=== PATIENT | male | born 1970 | race African-American/Black ===

== ENCOUNTER 2019-02-12 19:18 | Emergency (ER) | payer OTHER, SELFPAY ==
[2019-02-12] MEDS ORDERED: dexAMETHasone 4 MG TAB ONE (19:56)
[2019-02-12] MEDS ORDERED: CYCLOBENZAPRINE 10 MG TAB ONE (19:56)
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
[2019-02-12 22:01] VITALS: TEMP 97.5
[2019-02-12 22:05] VITALS: BP 138/99; O2SAT 99
== END 2019-02-12 21:26 | disposition home or self-care (01) ==
LOC: ER 19:18
DX: S50.12XA Contusion of left forearm, initial encounter (principal); M77.12 Lateral epicondylitis, left elbow; V43.52XA Car driver injured in collision with other type car in traffic accident, initial encounter; Y93.89 Activity, other specified; Y92.89 Other specified places as the place of occurrence of the external cause; Y99.9 Unspecified external cause status
CPT/HCPCS: 99284; J8540

== ENCOUNTER 2020-07-25 07:33 | Day surgery (SDC) | payer OTHER ==
[2020-07-25] MEDS ORDERED: Ringers Lactate 1,000 ML IV ONE (08:03)
[2020-07-25] MEDS ORDERED: CEFAZOLIN/SWI 1gm 1 GM/10 ML SYR ONE (08:03)
[2020-07-25] MEDS ORDERED: FENTANYL CITR 100 MCG/2 ML ONE (08:27)
[2020-07-25] MEDS ORDERED: MIDAZOLAM HCL 2 MG/2 ML INJ ONE (08:28)
[2020-07-25] MEDS ORDERED: ONDANSETRON 4 MG/2 ML VIAL ONE (08:28)
[2020-07-25] MEDS ORDERED: KETOROLAC 30 MG/ML INJ ONE (08:28)
[2020-07-25] MEDS ORDERED: dexAMETHasone 10 MG/ML VIAL ONE (08:28)
[2020-07-25] MEDS ORDERED: LIDOCAINE 2% MPF 5 ML VIAL ONE (08:28)
[2020-07-25] MEDS ORDERED: propofoL 200 MG/20 ML VIAL IV ONE (08:28)
[2020-07-25] MEDS ORDERED: BUPIVACAINE 0.25% PF 30 ML VIAL ONE (08:30)
--- NOTE | 2020-07-25 09:24 | P.OP ---
Preoperative diagnosis: Recurrent Umbilical Hernia Postoperative diagnosis: Recurrent Umbilical Hernia Primary procedure: Open Umbilical Hernia Repair with Mesh Anesthesia: GETA + Local Estimated blood loss: <5cc Specimen: hernia contents - adiopose Findings: small ~0.5cm hernia defect Complications: None Implants: 4.3 cm Bard Ventralex mesh with strap Transferred to: Recovery Room Condition: Good
[2020-07-25] MEDS: HYDROMORPHONE HCL 1 MG/ML INJ ONE ×2 (09:54→09:59)
[2020-07-25] MEDS ORDERED: MEPERIDINE HCL 25 MG/ML SYR ONE (10:06)
[2020-07-25 10:19] VITALS: BP 122/66; TEMP 97.2; O2SAT 100
--- NOTE | 2020-07-25 10:59 | OP ---
Date of Procedure: 07/25/2020 Surgeon: Jaskaran Mills MD, Preoperative Diagnosis: Recurrent umbilical hernia. Postoperative Diagnosis: Recurrent umbilical hernia. Procedure Performed: Open umbilical hernia repair with mesh. Anesthesia: General endotracheal plus local with 0.25% Marcaine without epinephrine. Estimated Blood Loss: Less than 5 mL. Specimens: Hernia contents-adipose tissue. Findings: Small less than 0.5 cm hernia defect. Complications: None. Implants: 4.3 cm Bard Ventralex mesh with straps. Disposition: The patient was transferred to recovery room in good condition. Procedure In Detail: After informed consent was obtained, the patient was brought to the operating r oom, prepped and draped in the usual sterile fashion. After adequate anesthesia achieved, an incisio n through a previous infraumbilical incision in a curvilinear fashion down through subcutaneous tissu e was dissected down to find the hernia sac, which was found to be quite small with only adipose tiss ue contained open hernia sac and removed the hernia sac contents, which were some entrapped fat at th is point. I then reduced the remainder of the preperitoneal fat to the preperitoneal space. I perfo rmed a digital finger sweep after enlarging the incision to approximately 1 cm in the fascia. A fing er sweep was performed to ensure a good landing zone for the hernia mesh system. At this point, I in spected the area for hemostasis and was achieved at this point. I then brought in a 0 looped PDS and brought the 4.2 cm round Bard Ventralex system with straps onto the field after hydrating it appropr iately, parachuted in the mesh using interrupted circumferential 0 PDS sutures and parachuted in the mesh at this point in the preperitoneal space. I then tied all these down while pulling on the strap to ensure good apposition to the anterior abdominal wall. I then closed the defect over the top usi ng a running 0 PDS suture with good apposition of the tissues. The area was copiously irrigated and then suctioned out until completely dry. I then closed the deep dermal plane using interrupted 3-0 V icryl sutures and the skin was closed with 4-0 Monocryl in a running fashion. Dermabond was placed o linda top. The patient tolerated the procedure well without evidence of complication and transferred t o PACU in good condition. All counts were correct at the end of the case. TK/MODL Voice ID: [id number] Report ID: [id number]
== END 2020-07-25 11:45 | disposition home or self-care (01) ==
LOC: OR 07:33
PROVIDERS: ATTEND Surgery
PROC: 0WUF0JZ Supplement Abdominal Wall with Synthetic Substitute, Open Approach (ICD-10-PCS; principal; 2020-07-25 08:30)
DX: K42.9 Umbilical hernia without obstruction or gangrene (principal); Z20.822 Contact with and (suspected) exposure to COVID-19
CPT/HCPCS: 88302; 49585; U0003; J2704; J2250; J3010; J1100; J2175; J1170; J0690; J7120; J2405

== ENCOUNTER 2024-12-03 09:52 | Emergency (ER) | payer OTHER ==
--- OUTSIDE RECORDS SUMMARY | 2024-12-03 09:55 | XMS REPORT | Clinical Summary ---
Author Name Unknown Organization [facility] Address [address] [place] [address] Care Team Providers Care Overnight Babysitter Name Role Phone Jeanie Humphreyjuli Unavailable Nathaniel Ronquillo MD Unavailable [phone] Troy Mccoy RN Unavailable Encounters Date Type Department Care Team Description 11/27/2024 Telephone [facility] [address] [facility], 7th Floor [address] [place], [place] [id number] Troy Mccoy, RN Nurse Navigation (Angela Ortiz) after 12/04/2023 Social History Tobacco Use Types Packs/Day Years Used Date Smoking Tobacco: Never Assessed Sex and Gender Information Value Date Recorded Sex Assigned at Not on file Legal Sex Male 4:11 PM CDT Gender Identity Not on file Sexual Orientation Not on file Plan of Treatment Health Maintenance Due Date Last Done Comments Pneumococcal Vaccine: 50+ Years (1 of 1 - PCV) 021 COVID-19 Vaccine ( - 2023-25 season) 2023 Influenza Vaccine (#1) 2024 Insurance [employer] [place]IC[place] TRAD[place] S[place] [employer] [place] PL[place] TRADITIONAL ST[place] SSI Advance Directives * Full Code (Latest Code Status on File) Date Activated Date Inactivated Comments 11/27/2024 3:22 PM Update based o n Advanced Directive Documentation Care Teams Overnight Babysitter Relationship Specialty Start Date End Date Patricia Humphrey [address] [place] [phone] PCP - External Primary Care Provider Family Practice 8/14/25 Nathaniel Ronquillo MD [address] [place] [address] PCP - External Follow Up A Urology 11/26/24 Troy Mccoy, RN [facility] [place], [place] [id number] [email or web address] Intake Nurse Navigator Nursing 11/27/24
[2024-12-03 10:17] LABS: Absolute Lymphocytes (CBC) 1.6 K/uL (0.7-4.9); Hematocrit 44.5 % (39.6-49.0); Hemoglobin 15.1 g/dL (13.6-17.9); MCH 31.3 pg (27.0-35.0); MCHC 34.0 g/dL (32.0-36.0); MCV 92.0 fL (80-100); MPV 8.8 fL (7.6-11.3); Nucleated RBC Absolute Count 0.0 (0-0); Nucleated Red Blood Cells % 0.0 % (0-0); RBC Red Blood Cell Count 4.84 M/uL (4.33-5.43); White Blood Count 7.10 thou/uL (4.3-10.9)
[2024-12-03] MEDS ORDERED: KETOROLAC 30 MG/ML INJ ONE (10:20)
[2024-12-03] MEDS ORDERED: ONDANSETRON 4 MG/2 ML VIAL ONE (10:20)
[2024-12-03] MEDS ORDERED: DIAZEPAM 2 MG TABLET ONE (10:21)
[2024-12-03] MEDS ORDERED: NA CHLORIDE 0.9% 1,000 ML ONE (10:21)
[2024-12-03] MEDS ORDERED: MORPHINE 4 MG/ML SYR ONE ×2 (10:21→11:59)
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
[2024-12-03 11:08] LABS: ALT/SGPT 25.0 U/L (16-61); Albumin 3.8 g/dL (3.4-5.0); Albumin/Globulin Ratio 1.1 (1.1-1.8); Alkaline Phosphatase 52.0 U/L (45-117); Anion Gap 8.2 mEq/L (5.0-15.0); BUN Blood Urea Nitrogen 12.0 mg/dL (7-18); Globulin 3.5 g/dL (2.3-3.5); Glucose Level 104.0 mg/dL (74-106)
[2024-12-03 11:09] LABS: AST/SGOT 16.0 U/L (15-37); Potassium 3.2 mEq/L (3.5-5.1)
--- NOTE | 2024-12-03 11:40 | RAD REPORT ---
EXAMINATION: MRI LUMBAR SPINE WITHOUT CONTRAST CLINICAL INDICATION: Radiculopathy TECHNIQUE: Multiplanar multisequence MR images were obtained of the lumbar spine without intravenous contrast. Unless otherwise specified, incidental findings do not require dedicated imaging follow-up. [id number]. COMPARISON: CT lumbar spine December 03, 2024 FINDINGS: For purposes of this dictation, it is assumed that there are 5 non rib-bearing lumbar type vertebrae, and the most caudal fully segmented lumbar vertebra is labeled L5. L1-2 and L2-3 unremarkable there graph Left lateral disc herniation L3-4 narrows the left neural foramina. Disc bulge, ligamentum flavum and facet hypertrophy L4-5. Mild narrowing of the neural foramina bilat erally L5-S1 disc is thinned with tiny central disc protrusion. Facet hypertrophy. Mild narrowing of the pato ral foramina No significant abnormal signal within the bones IMPRESSION: Left lateral disc herniation L3-4 narrows the left neural foramina
--- NOTE | 2024-12-03 11:58 | EDPHYS ---
Physician Documentation [facility] Name: Michel Youssef Jr Age: 54 yrs Sex: Male : 1970 Arrival Date: 12/03/2024 Time: 09:52 Bed DX2 Private MD: Terrence Sauceda HPI: 12/03 10:18 This 54 yrs old Black Male presents to ER via Ambulatory with complaints of Low Back michael Pain, Hip Pain - left, Leg Pain - Left numbness, Groin Pain. 10:18 The patient presents with pain that is acute, with no known mechanism of injury, that michael is chronic, with no known mechanism of injury. The symptoms are located in the low back, lumbar area and left low back. The pain does not radiate. The problem was sustained from unknown cause. Onset: The symptoms/episode began/occurred 2 day(s) ago. Modifying factors: The patient symptoms are alleviated by nothing, the patient symptoms are aggravated by any movement. Severity of symptoms: At their worst the symptoms were moderate, in the emergency department the symptoms are unchanged. The patient has experienced similar episodes in the past, multiple times. Historical: - Allergies: 10:08 Ibuprofen; ss 10:08 PCN; ss - Home Meds: 10:08 None [Active]; ss - PMHx: 10:08 Sciatica; prostate CA "low grade"; ss - PSHx: 10:08 umbilical hernia repair; ss - Immunization history:: Adult Immunizations up to date. - Infectious Disease History:: Denies. - Social history:: Smoking status: Patient denies any tobacco usage or history of. - Family history:: not pertinent. ROS: 10:18 Constitutional: Negative for fever, chills, and weight loss, Eyes: Negative for injury, michael pain, redness, and discharge, ENT: Negative for injury, pain, and discharge, Neck: Negative for injury, pain, and swelling, Cardiovascular: Negative for chest pain, palpitations, and edema, Respiratory: Negative for shortness of breath, cough, wheezing, and pleuritic chest pain, Abdomen/GI: Negative for abdominal pain, nausea, vomiting, diarrhea, and constipation, : Negative for injury, bleeding, discharge, and swelling, MS/Extremity: Negative for injury and deformity, Skin: Negative for injury, rash, and discoloration, Neuro: Negative for headache, weakness, numbness, tingling, and seizure, Psych: Negative for depression, anxiety, suicide ideation, homicidal ideation, and hallucinations, Allergy/Immunology: Negative for hives, rash, and allergies, Endocrine: Negative for neck swelling, polydipsia, polyuria, polyphagia, and marked weight changes, Hematologic/Lymphatic: Negative for swollen nodes, abnormal bleeding, and unusual bruising, 10:18 Back: Positive for decreased range of motion, pain at rest, pain with movement, radiated pain, of the lumbar area and left low back, Exam: 10:18 Constitutional: This is a well developed, well nourished patient who is awake, alert, michael and in no acute distress. Head/Face: Normocephalic, atraumatic. Eyes: Pupils equal round and reactive to light, extra-ocular motions intact. Lids and lashes normal. Conjunctiva and sclera are non-icteric and not injected. Cornea within normal limits. Periorbital areas with no swelling, redness, or edema. ENT: Nares patent. No nasal discharge, no septal abnormalities noted. Tympanic membranes are normal and external auditory canals are clear. Oropharynx with no redness, swelling, or masses, exudates, or evidence of obstruction, uvula midline. Mucous membranes moist. Neck: Trachea midline, no thyromegaly or masses palpated, and no cervical lymphadenopathy. Supple, full range of motion without nuchal rigidity, or vertebral point tenderness. No Meningismus. Chest/axilla: Normal chest wall appearance and motion. Nontender with no deformity. No lesions are appreciated. Cardiovascular: Regular rate and rhythm with a normal S1 and S2. No gallops, murmurs, or rubs. Normal PMI, no JVD. No pulse deficits. Respiratory: Lungs have equal breath sounds bilaterally, clear to auscultation and percussion. No rales, rhonchi or wheezes noted. No increased work of breathing, no retractions or nasal flaring. Abdomen/GI: Soft, non-tender, with normal bowel sounds. No distension or tympany. No guarding or rebound. No evidence of tenderness throughout. Male : Normal genitalia with no discharge or lesions. Skin: Warm, dry with normal turgor. Normal color with no rashes, no lesions, and no evidence of cellulitis. MS/ Extremity: Pulses equal, no cyanosis. Neurovascular intact. Full, normal range of motion., bilateral aka Neuro: Awake and alert, GCS 15, oriented to person, place, time, and situation. Cranial nerves II-XII grossly intact. Motor strength 5/5 in all extremities. Sensory grossly intact. Cerebellar exam normal. Normal gait. Psych: Awake, alert, with orientation to person, place and time. Behavior, mood, and affect are within normal limits. 10:18 Back: pain, that is moderate, that is severe, of the lumbar area and left low back, ROM is normal, normal spinal alignment noted, no deformity, CVA tenderness, is absent, vertebral tenderness, is not appreciated, muscle spasm, is appreciated in the left low back, left mid back, right mid back and right low back, 10:18 : Exam negative for 10:18 : Exam negative for acute changes, dysuria, discharge, blood at meatus, cervical michael motion tenderness, CVA tenderness, bladder tenderness, bladder distension, rectal tenderness, CVA tenderness, is absent, Male external genitalia: normal, Bladder: is normal, non-distended, non-tender, Vital Signs: 10:07 BP 127 / 76; Pulse 69; Resp 16; Temp 97.5(TE); Pulse Ox 99% on R/A; Weight 79.38 kg; ss Height 5 ft. 9 in. ; Pain 10/10; 11:00 BP 161 / 110; Pulse 63; Resp 19; Pulse Ox 99% ; me1 12:10 BP 135 / 79; Pulse 68; Resp 17; Pulse Ox 99% ; rg5 13:24 BP 135 / 85; Pulse 67; Resp 16; Pulse Ox 100% ; bp 10:07 Body Mass Index 25.84 (79.38 kg, 175.26 cm) ss 10:07 Pain Scale: Adult ss MDM: 10:00 Medical Screening Exam initiated michael 10:21 Differential diagnosis: arthritis, strain, fracture, sciatica, contusion, Herniated michael disc UTI. Data reviewed: vital signs, nurses notes, lab test result(s), radiologic studies, CT scan, MRI. Consideration of Admission/Observation Escalation of care including admission/observation considered. I considered the following discharge prescriptions or medication management in the emergency department Medications were administered in the Emergency Department. See MAR. Independent interpretation of the following test(s) in the Emergency Department CT Scan: My interpretation is CT LUMBAR. Historians other than the Patient: PT WELL INFORMED. Care significantly affected by the following chronic conditions: LOW BACK PAIN , SCIATICA. 12/03 10:02 Order name: CBC with Diff; Complete Time: 11:23 [facility] 12/03 10:02 Order name: CMP; Complete Time: 11:23 [facility] 12/03 10:02 Order name: CT Lumbar Spine Wo Con; Complete Time: 11:23 [facility] 12/03 10:18 Order name: MRI Lumbar Spine wo Con; Complete Time: 11:53 [facility] 12/03 11:54 Order name: PO challenge: JUICE; Complete Time: 12:08 [facility] 12/03 13:16 Order name: IV Saline Lock - Large Bore; Complete Time: 13:20 [facility] Administered Medications: 10:51 Drug: morphine IVP or IV 4 mg IVP once over 4 mins Route: IVP; Infused Over: 4 mins; me1 Site: left antecubital; 12:10 Follow up: Response: No adverse reaction; Pain is decreased rg5 10:51 Drug: Ondansetron IVP 8 mg IVP once; over 2 minutes Route: IVP; Site: left antecubital; me1 12:10 Follow up: Response: No adverse reaction rg5 11:27 Drug: NS 0.9% IV 1000 ml IV at 1000 ml once; to be given as a bolus over 60 minutes me1 Route: IV; Rate: 1000 ml; Site: left antecubital; 12:09 Follow up: IV Status: Completed infusion; IV Intake: 1000ml rg5 11:27 Drug: Ketorolac IVP 30 mg IVP once Route: IVP; Site: left antecubital; me1 12:09 Follow up: Response: No adverse reaction rg5 11:27 Drug: Diazepam PO 10 mg PO once Route: PO; me1 12:09 Follow up: Response: No adverse reaction rg5 11:27 Drug: Decadron - Dexamethasone IVP 10 mg IVP once Route: IVP; Site: left antecubital; me1 12:10 Follow up: Response: No adverse reaction rg5 12:00 Drug: Potassium PO Effervescent Tablet 25 mEq PO once; dissolve in 4 ounces of water or rg5 juice Route: PO; 12:54 Follow up: Response: No adverse reaction rg5 12:00 Drug: morphine IVP or IV 4 mg IVP once over 4 mins Route: IVP; Infused Over: 4 mins; rg5 Site: left antecubital; 12:54 Follow up: Response: No adverse reaction rg5 12:09 Drug: Decadron - Dexamethasone IVP 10 mg IVP once Route: IVP; Site: left antecubital; rg5 12:54 Follow up: Response: No adverse reaction rg5 13:31 Drug: diphenhydrAMINE IVP 50 mg IVP once Route: IVP; Site: left antecubital; bp 13:31 Drug: Famotidine IVP 40 mg IVP once; dilute with 10 mL 0.9% NaCl; give over 2 minutes bp Route: IVP; Site: left antecubital; Disposition Summary: 12/03/24 11:56 Discharge Ordered Notes: Location: Home michael Problem: new michael Symptoms: have improved michael Condition: Stable michael Diagnosis - Sciatica michael - Sciatica, left side michael - Radiculopathy, lumbar region michael - Hypokalemia michael - Intervertebral disc disorders with radiculopathy, lumbar region - LEFT LATERAL DISC michael HERNIATION L3-4NARROWS THE LEFT NEURAL FORAMEN Followup: michael - With: Private Physician - When: 2 - 3 days - Reason: Recheck today's complaints, Re-evaluation by your physician Followup: michael - With: Gilmar Smith MD - When: 2 - 3 days - Reason: Recheck today's complaints, Re-evaluation by your physician Discharge Instructions: - Discharge Summary Sheet michael - Potassium Content of Foods michael - Drug Allergy, [id number] michael - Herniated Disk michael - Lumbosacral Radiculopathy michael - Sciatica michael - Hypokalemia michael - Herniated Disk, Sahi-da-Tisl michael - Radicular Pain michael Forms: - Medication Reconciliation Form michael - Antibiotic Education michael - Prescription Opioid Use michael - Patient Portal Instructions michael - Leadership Thank You Letter [facility] Prescriptions: - Pepcid 40 mg Oral tablet - take 1 tablet ORAL route 2 times per day; 20 tablet; Refills: 0, Product michael Selection Permitted - Hydroxyzine HCl 50 mg Oral tablet - take 1 tablet ORAL route every 6 hours As needed; 28 tablet; Refills: 0, michael Product Selection Permitted - Valium 5 mg Oral Tablet - take 1 tablet ORAL route every 8 hours As needed; 20 tablet; Refills: 0, [facility] Product Selection Permitted - Tylenol-Codeine #3 300mg-30mg Oral tablet - take 2 tablets ORAL route every 6 hours As needed; 20 tablet; Refills: 0, [facility] Product Selection Permitted - Dexamethasone 4mg Oral tablet - take 1 tablet ORAL route daily for 4 days; 4 tablet; Refills: 0, Product [facility] Selection Permitted Signatures: Dispatcher [employer] Terrence Gonzalez MD MD cha Blanchard, Shelby, RN RN ss Vic Andrade RN RN bp Rosana Aguilar RN RN me1 Darrick Zhong RN RN rg5 Corrections: (The following items were deleted from the chart) 10:18 10:18 Lumbar Spine Wo Con+[id number].RAD.[id number] ordered. BRADSD SUSAN
--- NOTE | 2024-12-03 11:58 | ER ---
Nurse's Notes [facility] Name: Michel Youssef Jr Age: 54 yrs Sex: Male : 1970 Arrival Date: 12/03/2024 Time: 09:52 Bed DX2 Private MD: Diagnosis: Sciatica;Sciatica, left side;Radiculopathy, lumbar region;Hypokalemia;Intervertebral disc disorders with radiculopathy, lumbar region-LEFT LATERAL DISC HERNIATION L3-4NARROWS THE LEFT NEURAL FORAMEN Presentation: 12/03 10:07 Chief complaint: Patient states: Pain to L buttock that radiates down L x 4 days. HX of ss sciatica, but pt reports this feels worse. Coronavirus screen: Client denies travel out of the [place] in the last 14 days. Ebola Screen: Patient denies exposure to infectious person. Patient denies travel to an Ebola-affected area in the 21 days before illness onset. Initial Sepsis Screen: Does the patient meet any 2 criteria? No. Patient's initial sepsis screen is negative. Does the patient have a suspected source of infection? No. Patient's initial sepsis screen is negative. Risk Assessment: Do you want to hurt yourself or someone else? Patient reports no desire to harm self or others. Onset of symptoms was December 03, 2024. 10:07 Method Of Arrival: Ambulatory ss 10:07 Acuity: SUKI 3 ss Historical: - Allergies: 10:08 Ibuprofen; ss 10:08 PCN; ss - Home Meds: 10:08 None [Active]; ss - PMHx: 10:08 Sciatica; prostate CA "low grade"; ss - PSHx: 10:08 umbilical hernia repair; ss - Immunization history:: Adult Immunizations up to date. - Infectious Disease History:: Denies. - Social history:: Smoking status: Patient denies any tobacco usage or history of. - Family history:: not pertinent. Screenin:05 [facility] ED Fall Risk Assessment (Adult) History of falling in the last 3 months, me1 including since admission No falls in past 3 months (0 pts) Confusion or Disorientation No (0 pts) Intoxicated or Sedated No (0 pts) Impaired Gait No (0 pts) Mobility Assist Device Used No (0 pt) Altered Elimination No (0 pt) Score/Fall Risk Level 0 - 2 = Low Risk Maintained a safe environment, Provided non-skid footwear, Hourly rounding (assess needs \\T\\ fall precautionary measures) done. Abuse screen: Denies threats or abuse. Nutritional screening: No deficits noted. Tuberculosis screening: No symptoms or risk factors identified. Assessment: 10:05 General: Appears uncomfortable, well groomed, well developed, well nourished, Behavior me1 is calm, cooperative, appropriate for age, Reports Pain to L buttock that radiates down L x 4 days. HX of sciatica, but pt reports this feels worse. Pain: Complains of pain in left mid back and left low back and lumbar area Pain radiates to left leg Pain currently is 10 out of 10 on a pain scale. Quality of pain is described as burning, sharp, shooting, Pain began 4 days ago Is continuous. Neuro: Level of Consciousness is awake, alert, obeys commands, Oriented to person, place, time, situation, Appropriate for age. Cardiovascular: Patient's skin is warm and dry. Respiratory: Airway is patent Respiratory effort is even, unlabored, Respiratory pattern is regular, symmetrical. GI: No signs and/or symptoms were reported involving the gastrointestinal system. : No signs and/or symptoms were reported regarding the genitourinary system. EENT: No signs and/or symptoms were reported regarding the EENT system. Derm: Skin is intact, is healthy with good turgor, Skin is normal. Musculoskeletal: Reports pain in left leg and left mid back and left low back and lumbar area. 13:16 General: Patient verbalized concern that he is having a reaction to toradol. Has nasal me1 congestion, eyes are swollen, reports difficulty swallowing.. 13:23 Reassessment: PT RETURNED AFTER DC, ABRUPT DYSPNEA, TROUBLE SWALLOWING AND FACIAL RASH. bp Vital Signs: 10:07 BP 127 / 76; Pulse 69; Resp 16; Temp 97.5(TE); Pulse Ox 99% on R/A; Weight 79.38 kg; ss Height 5 ft. 9 in. ; Pain 10/10; 11:00 BP 161 / 110; Pulse 63; Resp 19; Pulse Ox 99% ; me1 12:10 BP 135 / 79; Pulse 68; Resp 17; Pulse Ox 99% ; rg5 13:24 BP 135 / 85; Pulse 67; Resp 16; Pulse Ox 100% ; bp 10:07 Body Mass Index 25.84 (79.38 kg, 175.26 cm) ss 10:07 Pain Scale: Adult ss ED Course: 09:56 Patient arrived in ED. im 10:00 Terrence Vora MD is Attending Physician. michael 10:00 Rosana Aguilar, BRITNEY is Primary Nurse. me1 10:05 Patient has correct armband on for positive identification. Bed in low position. Call me1 light in reach. Side rails up X2. Provided Education on: POC. Verbalized understanding.. Client placed on continuous cardiac and pulse oximetry monitoring. NIBP monitoring applied. Pulse ox on. NIBP on. 10:05 No provider procedures requiring assistance completed. me1 10:08 Triage completed. ss 10:08 Arm band placed on left wrist. ss 10:18 CMP Sent. me1 10:18 CBC with Diff Sent. me1 10:18 Initial lab(s) drawn, by ct, sent to lab. Inserted saline lock: 22 gauge in left me1 antecubital area, using aseptic technique. 10:37 CT Lumbar Spine Wo Con In Process Unspecified. EDMS 11:14 MRI Lumbar Spine wo Con In Process Unspecified. EDMS 11:56 Gilmar Smith MD is Referral Physician. michael 12:23 IV discontinued, bleeding controlled, No redness/swelling at site. Pressure dressing rg5 applied. 13:26 Inserted saline lock: 22 gauge in left antecubital area, using aseptic technique. bp 13:27 Vic Andrade, BRITNEY is Primary Nurse. bp 14:12 IV discontinued, intact, bleeding controlled, No redness/swelling at site. Pressure ss dressing applied. Administered Medications: 10:51 Drug: morphine IVP or IV 4 mg IVP once over 4 mins Route: IVP; Infused Over: 4 mins; me1 Site: left antecubital; 12:10 Follow up: Response: No adverse reaction; Pain is decreased rg5 10:51 Drug: Ondansetron IVP 8 mg IVP once; over 2 minutes Route: IVP; Site: left antecubital; me1 12:10 Follow up: Response: No adverse reaction rg5 11:27 Drug: NS 0.9% IV 1000 ml IV at 1000 ml once; to be given as a bolus over 60 minutes me1 Route: IV; Rate: 1000 ml; Site: left antecubital; 12:09 Follow up: IV Status: Completed infusion; IV Intake: 1000ml rg5 11:27 Drug: Ketorolac IVP 30 mg IVP once Route: IVP; Site: left antecubital; me1 12:09 Follow up: Response: No adverse reaction rg5 11:27 Drug: Diazepam PO 10 mg PO once Route: PO; me1 12:09 Follow up: Response: No adverse reaction rg5 11:27 Drug: Decadron - Dexamethasone IVP 10 mg IVP once Route: IVP; Site: left antecubital; me1 12:10 Follow up: Response: No adverse reaction rg5 12:00 Drug: Potassium PO Effervescent Tablet 25 mEq PO once; dissolve in 4 ounces of water or rg5 juice Route: PO; 12:54 Follow up: Response: No adverse reaction rg5 12:00 Drug: morphine IVP or IV 4 mg IVP once over 4 mins Route: IVP; Infused Over: 4 mins; rg5 Site: left antecubital; 12:54 Follow up: Response: No adverse reaction rg5 12:09 Drug: Decadron - Dexamethasone IVP 10 mg IVP once Route: IVP; Site: left antecubital; rg5 12:54 Follow up: Response: No adverse reaction rg5 13:31 Drug: diphenhydrAMINE IVP 50 mg IVP once Route: IVP; Site: left antecubital; bp 13:31 Drug: Famotidine IVP 40 mg IVP once; dilute with 10 mL 0.9% NaCl; give over 2 minutes bp Route: IVP; Site: left antecubital; Medication: 10:05 VIS not applicable for this client. me1 Intake: 12:09 IV: 1000ml; Total: 1000ml. rg5 Outcome: 11:56 Discharge ordered by . micheal 12:23 Discharged to home via wheelchair, rg5 12:23 Condition: stable 12:23 Discharge instructions given to patient, Prescriptions given X 4, 12:55 Patient left the ED. rg5 14:12 Discharged to home ambulatory, with family, 14:12 Condition: good 14:12 Instructed on discharge instructions, follow up and referral plans. medication usage, Demonstrated understanding of instructions, follow-up care, medications, 14:43 Patient left the ED. ss Signatures: Dispatcher [employer] EDTerrence Everett MD MD cha Blanchard, Shelby, RN RN ss Vic Andrade, RN RN Megan Clemons Michelle, RN RN me1 Darrick Zhong RN RN rg5 Corrections: (The following items were deleted from the chart) 10:55 10:07 Chief complaint: Patient states: Pain to L buttock that radiates down L x 4 days. me1 HX of sciatica, but pt reports this feels worse ss
[2024-12-03] MEDS ORDERED: POTASSIUM 25 MEQ EFFERV TAB ONE (11:59)
[2024-12-03] MEDS ORDERED: NA CHLORIDE 0.9% 250 ML ONE (12:26)
[2024-12-03 13:00] VITALS: TEMP 97.5
[2024-12-03] MEDS ORDERED: FAMOTIDINE 20 MG/2 ML VIAL IV ONE (13:20)
[2024-12-03] MEDS ORDERED: DIPHENHYDRAMINE 50 MG/ML VIAL ONE (13:20)
[2024-12-03 16:16] VITALS: BP 135/85; O2SAT 100
== END 2024-12-03 14:43 | disposition home or self-care (01) ==
LOC: ER 09:52
DX: M54.32 Sciatica, left side (principal); M54.16 Radiculopathy, lumbar region; E87.6 Hypokalemia; M51.16 Intervertebral disc disorders with radiculopathy, lumbar region; Z88.0 Allergy status to penicillin; Z88.8 Allergy status to other drugs, medicaments and biological substances
CPT/HCPCS: 96361; 85025; 36415; 80053; 72131; 72148; 96375; 96374; 99284; J1200; J1100 ×2; J2405; J7050; J7030

== ENCOUNTER 2024-12-09 13:08 | Emergency (ER) | payer OTHER ==
--- OUTSIDE RECORDS SUMMARY | 2024-12-09 13:11 | XMS REPORT | Clinical Summary ---
Author Name Unknown Organization [facility] Address [address] [place] [address] Care Team Providers Care Fisheries Diver Name Role Phone Jeanie Humphreyjuli Unavailable Nathaniel Ronquillo MD Unavailable [phone] Troy Mccoy RN Unavailable Encounters Date Type Department Care Team Description 11/27/2024 Telephone [facility] [address] [facility] [address] [facility] 7th Floor Elevator [address] [place], [place] [id number] Troy Mccoy, RN Nurse Navigation (Angela Ortiz) after 12/10/2023 Social History Tobacco Use Types Packs/Day Years [...] season) 2023 Influenza Vaccine (#1) 2024 Insurance [employer] GOLD PL[place]IC[place] TRAD[place] [employer] [place]AD[place] Advance Directives * Full Code (Latest Code Status on File) Date Activated Date Inactivated Comments 11/27/2024 3:22 PM Update based o n Advanced Directive Documentation Care Teams Fisheries Diver Relationship Specialty Start Date End Date Patricia Humphrey [address] [place] [phone] PCP - External Primary Care Provider Family Practice 8/14/25 Nathaniel Ronquillo MD [address] [place] [address] PCP - External Follow Up A Urology 11/26/24 Troy Mccoy, RN [facility] [place], [place] [id number] [email or web address] Nurse Navigator Nursing 11/27/24
[2024-12-09] MEDS ORDERED: HYDROMORPHONE HCL 1 MG/ML INJ ONE (16:26)
[2024-12-09] MEDS ORDERED: DIAZEPAM 5 MG TABLET ONE (16:27)
[2024-12-09] MEDS ORDERED: NA CHLORIDE 0.9% 1,000 ML ONE (16:27)
[2024-12-09] MEDS ORDERED: ONDANSETRON 4 MG/2 ML VIAL ONE (16:27)
--- NOTE | 2024-12-09 16:52 | EDPHYS ---
Physician Documentation [facility] Name: Michel Youssef Jr Age: 54 yrs Sex: Male : 1970 Arrival Date: 12/09/2024 Time: 13:08 Bed 17 Private MD: Terrence Sauceda HPI: 12/09 16:35 This 54 yrs old Black Male presents to ER via Ambulatory with complaints of LT Side michael Pain. 16:35 The patient presents with decreased range of motion, an injury, pain, that is acute. michael The complaints affect the lateral aspect of left thigh, left hamstring and left quadriceps. Context: The problem was sustained at an unknown site. Onset: The symptoms/episode began/occurred 5 day(s) ago. Modifying factors: The symptoms are alleviated by nothing. remaining still, the symptoms are aggravated by movement, weight bearing. Associated signs and symptoms: The patient has no apparent associated signs or symptoms. The patient presents with pain that is acute, and decreased range of motion. The symptoms are located in the low back, lumbar area and left low back, L3, L4 and L5. Location: left low back. Associated signs and symptoms: The patient has no apparent associated signs or symptoms. Modifying factors: The patient symptoms are alleviated by remaining still. Historical: - Allergies: 13:47 Ibuprofen; iw 13:47 pcn; iw - PMHx: 13:47 sciatica; prostate cancer (umbilical hernia repair); iw - PSHx: 13:47 umbilical hernia repair; iw - Immunization history:: Adult Immunizations. - Infectious Disease History:: Denies. - Social history:: Smoking status: Patient denies any tobacco usage or history of. ROS: 16:45 Constitutional: Negative for fever, chills, and weight loss, Eyes: Negative for injury, michael pain, redness, and discharge, ENT: Negative for injury, pain, and discharge, Neck: Negative for injury, pain, and swelling, Cardiovascular: Negative for chest pain, palpitations, and edema, Respiratory: Negative for shortness of breath, cough, wheezing, and pleuritic chest pain, Abdomen/GI: Negative for abdominal pain, nausea, vomiting, diarrhea, and constipation, : Negative for injury, bleeding, discharge, and swelling, MS/Extremity: Negative for injury and deformity, Skin: Negative for injury, rash, and discoloration, Neuro: Negative for headache, weakness, numbness, tingling, and seizure, Psych: Negative for depression, anxiety, suicide ideation, homicidal ideation, and hallucinations, Allergy/Immunology: Negative for hives, rash, and allergies, Endocrine: Negative for neck swelling, polydipsia, polyuria, polyphagia, and marked weight changes, Hematologic/Lymphatic: Negative for swollen nodes, abnormal bleeding, and unusual bruising, 16:45 Back: Positive for decreased range of motion, pain with movement, radiated pain, of the lumbar area and left low back, 16:45 MS/extremity: Positive for decreased range of motion, pain, of the lumbar area and left low back, Exam: 16:45 Constitutional: This is a well developed, well nourished patient who is awake, alert, michael and in no acute distress. Head/Face: Normocephalic, atraumatic. Eyes: Pupils equal round and reactive to light, extra-ocular motions intact. Lids and lashes normal. Conjunctiva and sclera are non-icteric and not injected. Cornea within normal limits. Periorbital areas with no swelling, redness, or edema. ENT: Nares patent. No nasal discharge, no septal abnormalities noted. Tympanic membranes are normal and external auditory canals are clear. Oropharynx with no redness, swelling, or masses, exudates, or evidence of obstruction, uvula midline. Mucous membranes moist. Neck: Trachea midline, no thyromegaly or masses palpated, and no cervical lymphadenopathy. Supple, full range of motion without nuchal rigidity, or vertebral point tenderness. No Meningismus. Chest/axilla: Normal chest wall appearance and motion. Nontender with no deformity. No lesions are appreciated. Cardiovascular: Regular rate and rhythm with a normal S1 and S2. No gallops, murmurs, or rubs. Normal PMI, no JVD. No pulse deficits. Respiratory: Lungs have equal breath sounds bilaterally, clear to auscultation and percussion. No rales, rhonchi or wheezes noted. No increased work of breathing, no retractions or nasal flaring. Abdomen/GI: Soft, non-tender, with normal bowel sounds. No distension or tympany. No guarding or rebound. No evidence of tenderness throughout. Male : Normal genitalia with no discharge or lesions. Skin: Warm, dry with normal turgor. Normal color with no rashes, no lesions, and no evidence of cellulitis. MS/ Extremity: Pulses equal, no cyanosis. Neurovascular intact. Full, normal range of motion., bilateral aka Neuro: Awake and alert, GCS 15, oriented to person, place, time, and situation. Cranial nerves II-XII grossly intact. Motor strength 5/5 in all extremities. Sensory grossly intact. Cerebellar exam normal. Normal gait. Psych: Awake, alert, with orientation to person, place and time. Behavior, mood, and affect are within normal limits. 16:45 Respiratory: Exam negative for 16:45 Back: pain, that is moderate, of the lumbar area and left low back, ROM is painful, normal spinal alignment noted, CVA tenderness, is absent, vertebral tenderness, is not appreciated, muscle spasm, is appreciated in the left low back, left mid back, right mid back and right low back, 16:45 Musculoskeletal/extremity: Extremities: all appear grossly normal, with no appreciated pain with palpation, ROM: limited active range of motion due to pain, limited passive range of motion due to pain, in the left leg, Circulation is intact in all extremities. Sensation intact. Compartment Syndrome exam of affected extremity: is normal. Weight bearing: able to fully bear weight, DVT Exam: no swelling, negative Homans' sign noted on exam, no appreciated bluish discoloration, no erythema, no increased warmth, pain, tenderness, 17:45 Musculoskeletal/extremity: DVT Exam: michael Vital Signs: 13:45 BP 154 / 109; Pulse 66; Resp 16; Pulse Ox 100% on R/A; Weight 79.38 kg; Height 5 ft. 9 iw in. ; Pain 9/10; 16:07 BP 141 / 105; Pulse 56; Resp 15; Pulse Ox 96% ; cm10 16:30 BP 166 / 105; Pulse 58; Resp 15; Pulse Ox 98% on R/A; cm10 17:00 BP 146 / 91; Pulse 55; Resp 14; Pulse Ox 96% on R/A; cm10 17:30 BP 152 / 106; Pulse 56; Resp 15; Pulse Ox 96% on R/A; cm10 19:29 BP 149 / 89; Pulse 61; Resp 18; Pulse Ox 99% on R/A; Pain 7/10; tb4 20:17 BP 154 / 96; Pulse 59; Resp 18; Pulse Ox 97% on R/A; Pain 9/10; tb4 13:45 Body Mass Index 25.84 (79.38 kg, 175.26 cm) iw 13:45 Pain Scale: Adult iw 19:29 Pain Scale: Adult tb4 20:17 Pain Scale: Adult tb4 20:17 Patient was offered pain medication, but refused. Patient states nothing helps with the tb4 pain. MDM: 13:19 Medical Screening Exam initiated michael 16:48 Differential diagnosis: Epidural or Perispinal Abcess Epidural or Perispinal Bleed michael Fracture Obesity Osteoarthritis Osteomalacia Osteomyelitis Osteoporosis. Data reviewed: vital signs, nurses notes, lab test result(s), radiologic studies. Consideration of Admission/Observation Escalation of care including admission/observation considered. I considered the following discharge prescriptions or medication management in the emergency department Medications were administered in the Emergency Department. See MAR. Independent interpretation of the following test(s) in the Emergency Department MRI: My interpretation is MRI SPINE. Test considered but Not performed: CT: NO CT LUMBAR. Historians other than the Patient: PT WELL INFORMED. Care significantly affected by the following chronic conditions: SCIATICA. Counseling: I had a detailed discussion with the patient and/or guardian regarding the historical points, exam findings, and any diagnostic results supporting the discharge/admit diagnosis, the presence of at least one elevated blood pressure reading (>120/80) during this emergency department visit, lab results, radiology results, the need to transfer to another facility, for higher level of care, [facility] does not immediately have the required specialist. 12/09 16:18 Order name: CBC with Diff; Complete Time: 17:44 [facility] 12/09 16:18 Order name: CMP; Complete Time: 17:44 [facility] 12/09 16:18 Order name: UA Rfx Andrzej Cult if indicated [facility] Administered Medications: 16:43 Drug: NS 0.9% IV 1000 ml IV at 1000 ml once; to be given as a bolus over 60 minutes cm10 Route: IV; Rate: 1000 ml; Site: right antecubital; 17:46 Follow up: Response: No adverse reaction; IV Status: Completed infusion; IV Intake: cm10 1000ml 16:43 Drug: HYDROmorphone IVP 1 mg IVP once Route: IVP; Site: right antecubital; cm10 17:47 Follow up: Response: No adverse reaction cm10 16:43 Drug: Ondansetron IVP 8 mg IVP once; over 2 minutes Route: IVP; Site: right antecubital;cm10 17:47 Follow up: Response: No adverse reaction cm10 16:43 Drug: Decadron - Dexamethasone IVP 10 mg IVP once Route: IVP; Site: right antecubital; cm10 17:47 Follow up: Response: No adverse reaction cm10 16:43 Drug: Diazepam PO 10 mg PO once Route: PO; cm10 17:47 Follow up: Response: No adverse reaction cm10 18:38 Drug: Potassium PO Effervescent Tablet 50 mEq PO once; dissolve in 4 ounces of water or cm10 juice Route: PO; 19:09 Follow up: Response: No adverse reaction cm10 Disposition Summary: 12/09/24 16:51 Transfer Ordered Notes: Transfer Location: [facility] michael Reason: Higher level of care michael Condition: Stable michael Problem: new michael Symptoms: have improved michael Accepting Physician: TO [facility](12/09/24 20:19) tb4 Diagnosis - Sciatica, left side michael - Intervertebral disc disorders with radiculopathy, lumbar region - HERNIATED L3-4, michael L4-5, INTRACTABLE PAIN - Hypokalemia michael Forms: - Medication Reconciliation Form michael - SBAR form michael Signatures: Dispatcher [employer] EDTerrence Everett MD MD cha Williams, Irene RN Mireille Alonzo RN RN cmEdwige Pires RN RN tb4 Corrections: (The following items were deleted from the chart) 16:18 16:18 CBC+H.LAB.BRZ ordered. EDMS EDMS 16:18 16:18 COMPREHENSIVE METABOLIC PANEL+C.LAB.BRZ ordered. EDMS EDMS 16:18 16:18 UA Rfx Andrzej Cult if indicated+U.LAB.BRZ ordered. EDMS EDMS 16:18 16:18 Lumbar Spine Wo Con+MRI.RAD.BRZ ordered. EDMS EDMS 17:45 16:51 TO [facility] michael michael 20:19 17:45 TO [facility] michael tb4
--- NOTE | 2024-12-09 16:52 | ER ---
Nurse's Notes [facility] Name: Michel Youssef Jr Age: 54 yrs Sex: Male : 1970 Arrival Date: 12/09/2024 Time: 13:08 Bed 17 Private MD: Diagnosis: Sciatica, left side;Intervertebral disc disorders with radiculopathy, lumbar region-HERNIATED L3-4, L4-5, INTRACTABLE PAIN;Hypokalemia Presentation: 12/09 13:45 Chief complaint: Patient states: was seen here for left lower back/hip pain iw radiating to leg , it's numb and tingling, the pain comes from left side of neck and into hand , he had a CT done and has andrew on five different medications. Coronavirus screen: At this time, the client does not indicate any symptoms associated with coronavirus-19. Ebola Screen: No symptoms or risks identified at this time. Initial Sepsis Screen: Does the patient meet any 2 criteria? No. Patient's initial sepsis screen is negative. Does the patient have a suspected source of infection? No. Patient's initial sepsis screen is negative. Risk Assessment: Do you want to hurt yourself or someone else? Patient reports no desire to harm self or others. 13:45 Method Of Arrival: Ambulatory iw 13:45 Acuity: SUKI 3 iw 20:15 Onset of symptoms was December 03, 2024. tb4 Historical: - Allergies: 13:47 Ibuprofen; iw 13:47 pcn; iw - PMHx: 13:47 sciatica; prostate cancer (umbilical hernia repair); iw - PSHx: 13:47 umbilical hernia repair; iw - Immunization history:: Adult Immunizations. - Infectious Disease History:: Denies. - Social history:: Smoking status: Patient denies any tobacco usage or history of. Screenin:49 [facility] ED Fall Risk Assessment (Adult) History of falling in the last 3 months, cm10 including since admission No falls in past 3 months (0 pts) Confusion or Disorientation No (0 pts) Intoxicated or Sedated No (0 pts) Impaired Gait No (0 pts) Mobility Assist Device Used No (0 pt) Altered Elimination No (0 pt) Score/Fall Risk Level 0 - 2 = Low Risk Oriented to surroundings, Maintained a safe environment, Hourly rounding (assess needs \T\ fall precautionary measures) done. Abuse screen: Denies threats or abuse. Denies injuries from another. Nutritional screening: No deficits noted. Tuberculosis screening: No symptoms or risk factors identified. 19:29 [facility] ED Fall Risk Assessment (Adult) History of falling in the last 3 months, tb4 including since admission No falls in past 3 months (0 pts) Confusion or Disorientation No (0 pts) Intoxicated or Sedated No (0 pts) Impaired Gait No (0 pts) Mobility Assist Device Used No (0 pt) Altered Elimination No (0 pt) Score/Fall Risk Level 0 - 2 = Low Risk Maintained a safe environment. Abuse screen: Denies threats or abuse. Denies injuries from another. Nutritional screening: No deficits noted. Tuberculosis screening: No symptoms or risk factors identified. Assessment: 16:00 General: Appears in no apparent distress. uncomfortable, Behavior is calm, cooperative, cm10 appropriate for age. 16:00 Pain: Complains of pain in left leg. Pain: Pain currently is 10 out of 10 on a pain cm10 scale. Quality of pain is described as burning. Neuro: No deficits noted. Level of Consciousness is awake, alert, obeys commands, Oriented to person, place, time, situation, Appropriate for age. Respiratory: No deficits noted. Airway is patent Respiratory effort is even, unlabored, Respiratory pattern is symmetrical. Musculoskeletal: Reports pain in left leg. 17:00 Reassessment: Patient appears in no apparent distress at this time. Patient and/or cm10 family updated on plan of care and expected duration. Pain level reassessed. Patient is alert, oriented x 3, equal unlabored respirations, skin warm/dry/pink. 18:11 General: ATTEMPTED TO CALL REPORT, NO ANSWER.. cm10 18:15 Reassessment: Patient appears in no apparent distress at this time. Patient and/or cm10 family updated on plan of care and expected duration. Pain level reassessed. Patient is alert, oriented x 3, equal unlabored respirations, skin warm/dry/pink. 19:36 General: Appears uncomfortable, Behavior is calm, cooperative. Pain: Complains of pain tb4 in left arm, left hand, left leg and left foot Pain does not radiate. Pain currently is 7 out of 10 on a pain scale. Quality of pain is described as burning, shooting, Pain began gradually, six days ago Is continuous, Alleviated by nothing. Neuro: No deficits noted. Level of Consciousness is awake, alert, obeys commands, Oriented to person, place, time, situation, Hand Screen Printer are weak on left Moves all extremities. Full function Weakness in left hand(s) arm(s) leg(s) foot/feet left side of neck. Gait is unsteady, due to pain. Speech is normal, Facial symmetry appears normal. Cardiovascular: Denies chest pain. Respiratory: Airway is patent Respiratory effort is even, unlabored, Respiratory pattern is regular. GI: No signs and/or symptoms were reported involving the gastrointestinal system. : No signs and/or symptoms were reported regarding the genitourinary system. EENT: No signs and/or symptoms were reported regarding the EENT system. Derm: No signs and/or symptoms reported regarding the dermatologic system. Skin is intact, is healthy with good turgor, Skin is dry, Skin is normal, Skin temperature is warm. Musculoskeletal: Circulation, motion, and sensation intact. Range of motion: intact in all extremities, Reports weakness in left arm, left hand, left leg and left foot and left side of neck pain in left arm, left hand, left leg and left foot and left side of neck. Vital Signs: 13:45 BP 154 / 109; Pulse 66; Resp 16; Pulse Ox 100% on R/A; Weight 79.38 kg; Height 5 ft. 9 iw in. ; Pain 9/10; 16:07 BP 141 / 105; Pulse 56; Resp 15; Pulse Ox 96% ; cm10 16:30 BP 166 / 105; Pulse 58; Resp 15; Pulse Ox 98% on R/A; cm10 17:00 BP 146 / 91; Pulse 55; Resp 14; Pulse Ox 96% on R/A; cm10 17:30 BP 152 / 106; Pulse 56; Resp 15; Pulse Ox 96% on R/A; cm10 19:29 BP 149 / 89; Pulse 61; Resp 18; Pulse Ox 99% on R/A; Pain 7/10; tb4 20:17 BP 154 / 96; Pulse 59; Resp 18; Pulse Ox 97% on R/A; Pain 9/10; tb4 13:45 Body Mass Index 25.84 (79.38 kg, 175.26 cm) iw 13:45 Pain Scale: Adult iw 19:29 Pain Scale: Adult tb4 20:17 Pain Scale: Adult tb4 20:17 Patient was offered pain medication, but refused. Patient states nothing helps with the tb4 pain. ED Course: 13:17 Patient arrived in ED. cj3 13:19 Terrence Vora MD is Attending Physician. [facility] 13:47 Triage completed. iw 13:48 Arm band placed on. iw 15:13 Mireille Campuzano, RN is Primary Nurse. cm10 16:43 CBC with Diff Sent. cm10 16:43 CMP Sent. cm10 16:43 Initial lab(s) drawn, by me, sent to lab. Inserted saline lock: 20 gauge in right cm10 antecubital area, using aseptic technique. Blood collected. Flushed with 10 mL NS. 16:44 Patient has correct armband on for positive identification. Bed in low position. Call cm10 light in reach. Side rails up X 1. 16:45 transfer to [facility] initiated by Dr Vora. bd 18:26 Report given to AC at [facility]. cm10 19:11 Report given to BRITNEY Gibbons. cm10 19:29 Client placed on continuous cardiac and pulse oximetry monitoring. NIBP monitoring tb4 applied. Door closed. Lights dimmed. 19:29 No provider procedures requiring assistance completed. tb4 Administered Medications: 16:43 Drug: NS 0.9% IV 1000 ml IV at 1000 ml once; to be given as a bolus over 60 minutes cm10 Route: IV; Rate: 1000 ml; Site: right antecubital; 17:46 Follow up: Response: No adverse reaction; IV Status: Completed infusion; IV Intake: cm10 1000ml 16:43 Drug: HYDROmorphone IVP 1 mg IVP once Route: IVP; Site: right antecubital; cm10 17:47 Follow up: Response: No adverse reaction cm10 16:43 Drug: Ondansetron IVP 8 mg IVP once; over 2 minutes Route: IVP; Site: right antecubital;cm10 17:47 Follow up: Response: No adverse reaction cm10 16:43 Drug: Decadron - Dexamethasone IVP 10 mg IVP once Route: IVP; Site: right antecubital; cm10 17:47 Follow up: Response: No adverse reaction cm10 16:43 Drug: Diazepam PO 10 mg PO once Route: PO; cm10 17:47 Follow up: Response: No adverse reaction cm10 18:38 Drug: Potassium PO Effervescent Tablet 50 mEq PO once; dissolve in 4 ounces of water or cm10 juice Route: PO; 19:09 Follow up: Response: No adverse reaction cm10 Medication: 17:50 VIS not applicable for this client. cm10 Intake: 17:46 IV: 1000ml; Total: 1000ml. cm10 Outcome: 16:51 ER care complete, transfer ordered by MD. rodriguez 20:14 Transferred by ground EMS to [facility], Transfer form completed. tb4 20:14 Condition: stable 20:19 Patient left the ED. tb4 Signatures: Brynn Paredes Corey, MD MD cha Williams, Irene, RN RN iw Martinez, Clarissa, RN RN 10 Joan Aguiar Terri, RN RN tb4
[2024-12-09 16:53] LABS: Absolute Lymphocytes (CBC) 2.6 K/uL (0.7-4.9); Hematocrit 44.6 % (39.6-49.0); Hemoglobin 15.0 g/dL (13.6-17.9); MCH 31.4 pg (27.0-35.0); MCHC 33.7 g/dL (32.0-36.0); MCV 93.0 fL (80-100); MPV 8.3 fL (7.6-11.3); Nucleated RBC Absolute Count 0.0 (0-0); Nucleated Red Blood Cells % 0.2 % (0-0); RBC Red Blood Cell Count 4.80 M/uL (4.33-5.43); White Blood Count 5.90 thou/uL (4.3-10.9)
[2024-12-09 17:12] LABS: ALT/SGPT 20.0 U/L (16-61); AST/SGOT 11.0 U/L (15-37); Albumin 3.1 g/dL (3.4-5.0); Albumin/Globulin Ratio 1.0 (1.1-1.8); Alkaline Phosphatase 46.0 U/L (45-117); Anion Gap 5.0 mEq/L (5.0-15.0); BUN Blood Urea Nitrogen 18.0 mg/dL (7-18); Globulin 3.2 g/dL (2.3-3.5); Glucose Level 93.0 mg/dL (74-106); Potassium 3.0 mEq/L (3.5-5.1)
[2024-12-09] MEDS ORDERED: POTASSIUM 25 MEQ EFFERV TAB ONE (18:33)
[2024-12-09 19:00] LABS: Urine Microscopic Reflex YN NO UMIC
[2024-12-10 03:03] VITALS: O2SAT 97
[2024-12-10 03:07] VITALS: BP 114/75
== END 2024-12-09 20:19 | disposition short-term general hospital (02) ==
LOC: ER 13:08
DX: M51.16 Intervertebral disc disorders with radiculopathy, lumbar region (principal); E87.6 Hypokalemia
CPT/HCPCS: 85025; 36415; 81003; 80053; J1100; J1171; J2405; J7030